=== PATIENT | male | born 1970 | race Hispanic/Latino ===

== ENCOUNTER 2017-11-04 22:37 | Emergency (ER) | payer OTHER ==
--- NOTE | 2017-11-05 00:01 | ER ---
Nurse's Notes [facility] Name: Wilbert Collins Age: 47 yrs Sex: Male : 1970 Arrival Date: 11/04/2017 Time: 22:42 Bed Waiting Private MD: Diagnosis: Presentation: 11/04 22:56 Presenting complaint: Patient states: Toothache x1 week worse today; States pain to lp1 left top of mouth; taking OTC Anbesol topical get with no relief. Transition of care: patient was not received from another setting of care. Onset of symptoms was November 04, 2017. Risk Assessment: Do you want to hurt yourself or someone else? Patient reports no desire to harm self or others. Initial Sepsis Screen: Does the patient meet any 2 criteria? No. Patient's initial sepsis screen is negative. Does the patient have a suspected source of infection? No. Patient's initial sepsis screen is negative. Care prior to arrival: None. 22:56 Method Of Arrival: Ambulatory lp1 22:56 Acuity: CECILIA 5 lp1 Triage Assessment: 23:00 General: Appears in no apparent distress. Behavior is calm, cooperative, appropriate lp1 for age. Pain: Complains of pain in left buccal mucosa Pain currently is 8 out of 10 on a pain scale. 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 - Social history:: Smoking status: Patient/guardian denies using tobacco. - Ebola Screening: : No symptoms or risks identified at this time. Screenin:58 Abuse screen: Denies threats or abuse. Denies injuries from another. Nutritional lp1 screening: No deficits noted. Tuberculosis screening: No symptoms or risk factors identified. Fall Risk None identified. Assessment: 23:19 General: Appears uncomfortable, Behavior is appropriate for age. Pain: Complains of lp1 pain in left buccal mucosa Pain currently is 8 out of 10 on a pain scale. Quality of pain is described as aching. Neuro: Level of Consciousness is awake, alert, obeys commands. Cardiovascular: Patient's skin is warm and dry. Respiratory: Respiratory effort is even, unlabored. GI: No signs and/or symptoms were reported involving the gastrointestinal system. : No signs and/or symptoms were reported regarding the genitourinary system. EENT: Reports pain in left buccal mucosa. Derm: Skin is pink, warm \T\ dry. Musculoskeletal: Circulation, motion, and sensation intact. Vital Signs: 22:58 BP 141 / 108; Pulse 61; Resp 16; Temp 98.3(O); Pulse Ox 98% on R/A; Weight 81.65 kg; lp1 Height 5 ft. 4 in. (162.56 cm); Pain 8/10; 22:58 Body Mass Index 30.90 (81.65 kg, 162.56 cm) lp1 ED Course: 22:42 Patient arrived in ED. es 22:57 Triage completed. lp1 22:58 Arm band placed on left wrist. lp1 23:19 Patient has correct armband on for positive identification. lp1 23:52 Charanjit Borjas NP is PHCP. pm1 23:52 Johnny Kaiser MD is Attending Physician. pm1 23:59 Patient's name was called from ER Graspr. No response. lp1 Administered Medications: No medications were administered Outcome: 11/05 00:00 Eloped from waiting room, before seeing physician Time discovered patient gone: October lp1 2017 at 00:00 00:00 Patient left the ED. lp1 Signatures: Racquel Robison Laura RN RN lp1 Charanjit Borjas NP COMPUTER SYSTEMS ENGINEER pm1 Corrections: (The following items were deleted from the chart) 00:00 11/04 23:59 Patient's name was called from ER Graspr. No response. lp1 lp1
--- NOTE | 2017-11-06 00:01 | EDPHYS ---
Physician Documentation [facility] Name: Wilbert Collins Age: 47 yrs Sex: Male : 1970 Arrival Date: 11/04/2017 Time: 22:42 Bed Waiting Private MD: ED Physician Johnny Kaiser Historical: - Allergies: 11/04 22:58 No Known Allergies; lp1 - Home Meds: 22:58 None [Active]; lp1 - PMHx: 22:58 None; lp1 - PSHx: 22:58 L great toe amputation; lp1 - Immunization history:: Adult Immunizations up to date. - Social history:: Smoking status: Patient/guardian denies using tobacco. - Ebola Screening: : No symptoms or risks identified at this time. Vital Signs: 22:58 BP 141 / 108; Pulse 61; Resp 16; Temp 98.3(O); Pulse Ox 98% on R/A; Weight 81.65 kg; lp1 Height 5 ft. 4 in. (162.56 cm); Pain 8/10; 22:58 Body Mass Index 30.90 (81.65 kg, 162.56 cm) lp1 MDM: 23:57 Patient medically screened. pm1 11/05 00:00 ED course: Patient left the ER prior to being evaluated by me. pm1 00:00 ED course: Impression: Dental pain. pm1 Administered Medications: No medications were administered Disposition: 11/05/17 00:00 Patient left the facility before being seen by provider. - Patient left due to unknown. Signatures: Paris Arteaga RN RN lp1 Charanjit Borjas NP SOLAR SALES ESTIMATOR pm1
== END 2017-11-05 | disposition left against medical advice (07) ==
LOC: ER 22:37
DX: Z53.21 Procedure and treatment not carried out due to patient leaving prior to being seen by health care provider (principal)
CPT/HCPCS: 99281

== ENCOUNTER 2017-11-12 18:56 | Emergency (ER) | payer OTHER ==
--- NOTE | 2017-11-12 19:09 | EDPHYS ---
Physician Documentation [facility] Name: Wilbert Collins Age: 47 yrs Sex: Male : 1970 Arrival Date: 11/12/2017 Time: 18:56 Bed 12 Private MD: ED Physician Saulo Bush HPI: 11/12 19:12 This 47 yrs old Male presents to ER via Ambulatory with complaints of snw Toothache. 19:12 The patient presents with pain. The problem is located in the upper left second molar snw (#15). Onset: The symptoms/episode began/occurred gradually. Duration: The symptoms are continuous. Associated signs and symptoms: The patient has no apparent associated signs or symptoms. Severity of symptoms: At their worst the symptoms were severe. It is unknown whether or not the patient has had similar symptoms in the past. had dental work, appt for root canal but unable to stand the pain. Historical: - Allergies: 19:01 No Known Allergies; la1 - PMHx: 19:01 Hypertension; la1 - Immunization history:: Adult Immunizations up to date. - Social history:: Smoking status: Patient/guardian denies using tobacco. - Ebola Screening: : No symptoms or risks identified at this time. ROS: 19:11 Constitutional: Negative for fever, chills, and weight loss, Eyes: Negative for injury, snw pain, redness, and discharge, Neck: Negative for injury, pain, and swelling, Cardiovascular: Negative for chest pain, palpitations, and edema, Respiratory: Negative for shortness of breath, cough, wheezing, and pleuritic chest pain, Abdomen/GI: Negative for abdominal pain, nausea, vomiting, diarrhea, and constipation, Back: Negative for injury and pain, : Negative for injury, bleeding, discharge, and swelling, MS/Extremity: Negative for injury and deformity, Skin: Negative for injury, rash, and discoloration, Neuro: Negative for headache, weakness, numbness, tingling, and seizure. 19:11 ENT: Positive for dental pain. Exam: 19:11 Constitutional: This is a well developed, well nourished patient who is awake, alert, snw and in no acute distress. Head/Face: Normocephalic, atraumatic. Eyes: Pupils equal round and reactive to light, extra-ocular motions intact. Lids and lashes normal. Conjunctiva and sclera are non-icteric and not injected. Cornea within normal limits. Periorbital areas with no swelling, redness, or edema. ENT: Nares patent. No nasal discharge, no septal abnormalities noted. Tympanic membranes are normal and external auditory canals are clear. Oropharynx with no redness, swelling, or masses, exudates, or evidence of obstruction, uvula midline. Mucous membranes moist. Neck: Trachea midline, no thyromegaly or masses palpated, and no cervical lymphadenopathy. Supple, full range of motion without nuchal rigidity, or vertebral point tenderness. No Meningismus. Chest/axilla: Normal chest wall appearance and motion. Nontender with no deformity. No lesions are appreciated. Cardiovascular: Regular rate and rhythm with a normal S1 and S2. No gallops, murmurs, or rubs. Normal PMI, no JVD. No pulse deficits. Respiratory: Lungs have equal breath sounds bilaterally, clear to auscultation and percussion. No rales, rhonchi or wheezes noted. No increased work of breathing, no retractions or nasal flaring. Abdomen/GI: Soft, non-tender, with normal bowel sounds. No distension or tympany. No guarding or rebound. No evidence of tenderness throughout. Back: No spinal tenderness. No costovertebral tenderness. Full range of motion. Skin: Warm, dry with normal turgor. Normal color with no rashes, no lesions, and no evidence of cellulitis. MS/ Extremity: Pulses equal, no cyanosis. Neurovascular intact. Full, normal range of motion. Neuro: Awake and alert, GCS 15, oriented to person, place, time, and situation. Cranial nerves II-XII grossly intact. Motor strength 5/5 in all extremities. Sensory grossly intact. Cerebellar exam normal. Normal gait. Psych: Awake, alert, with orientation to person, place and time. Behavior, mood, and affect are within normal limits. 19:11 ENT: Dental exam: missing teeth, specifically the upper left first molar (#14), pain, that is severe, specifically in the upper left second molar (#15). Vital Signs: 19:01 BP 175 / 110; Pulse 90; Resp 19; Temp 99.1; Pulse Ox 100% on R/A; Weight 81.65 kg; la1 19:36 BP 160 / 105; Pulse 88; Resp 18; Pulse Ox 99% on R/A; lp1 MDM: 19:07 Patient medically screened. snw 19:12 Data reviewed: vital signs, nurses notes. Data interpreted: Pulse oximetry: on room air snw is 100 %. Interpretation: normal. Counseling: I had a detailed discussion with the patient and/or guardian regarding: the historical points, exam findings, and any diagnostic results supporting the discharge/admit diagnosis, the presence of at least one elevated blood pressure reading (>120/80) during this emergency department visit, the need for outpatient follow up, to return to the emergency department if symptoms worsen or persist or if there are any questions or concerns that arise at home. Special discussion: I have referred the patient to see his PCP for further evaluation of high blood pressure. I discussed in detail with the patient the higher chance of wound infection based on his presenting history. Based on the history and exam findings, there is no indication for further emergent testing or inpatient evaluation. I discussed with the patient/guardian the need to see a dentist for further evaluation of the symptoms. I discussed with the patient/guardian the need to see the primary care provider for further evaluation of the symptoms. Administered Medications: 19:17 Drug: fentaNYL (PF) 75 mcg Route: IM; Site: right gluteus; lp1 19:36 Follow up: Response: Pain is decreased lp1 19:17 Drug: TORadol 60 mg Route: IM; Site: right gluteus; lp1 19:36 Follow up: Response: Pain is decreased lp1 19:17 Drug: Augmentin 875 mg Route: PO; lp1 19:36 Follow up: Response: No adverse reaction lp1 Disposition: 11/12/17 19:08 Discharged to Home. Impression: Dental caries, Dental root caries. - Condition is Stable. - Discharge Instructions: Dental Abscess, Dental Caries, Adult, Dental Pain, Root Canal, Diet and Dental Disease. - Prescriptions for penicillin V potassium 500 mg Oral tablet - take 1 tablet by ORAL route every 8 hours; 30 tablet. Diclofenac Sodium 75 mg Oral Tablet Sustained Release - take 1 tablet by ORAL route 2 times per day; 30 tablet. - Medication Reconciliation Form, Thank You Letter, Antibiotic Education, Prescription Opioid Use form. - Follow up: Emergency Department; When: As needed; Reason: Worsening of condition. Follow up: Private Physician; When: 1 - 2 days; Reason: Recheck today's complaints, Continuance of care, Re-evaluation by your physician. Addendum: 11/15/2017 07:27 Co-signature as Attending Physician, Saulo Bush MD I agree with the assessment and k dr plan of care. Signatures: Saulo Bush MD MD [facility] Yuko Chavez, HOG RINGER-C HOG RINGER-Csnw Paris Arteaga, RN RN lp1 Yahir Russell RN RN la1 Corrections: (The following items were deleted from the chart) 11/12 19:37 19:08 11/12/2017 19:08 Discharged to Home. Impression: Dental caries; Dental root lp1 caries. Condition is Stable. Forms are Medication Reconciliation Form, Thank You Letter, Antibiotic Education, Prescription Opioid Use. Follow up: Emergency Department; When: As needed; Reason: Worsening of condition. Follow up: Private Physician; When: 1 - 2 days; Reason: Recheck today's complaints, Continuance of care, Re-evaluation by your physician. snw
--- NOTE | 2017-11-12 19:09 | ER ---
Nurse's Notes [facility] Name: Wilbert Collins Age: 47 yrs Sex: Male : 1970 Arrival Date: 11/12/2017 Time: 18:56 Bed 12 Private MD: Diagnosis: Dental caries;Dental root caries Presentation: 11/12 19:00 Presenting complaint: Patient states: I have an appointment for a root canal in 2 weeks la1 because they had to take care of my cavities first but they did not give me anything for the pain and it is very bad. Transition of care: patient was not received from another setting of care. Onset of symptoms was November 12, 2017. Risk Assessment: Do you want to hurt yourself or someone else? Patient reports no desire to harm self or others. Initial Sepsis Screen: Does the patient meet any 2 criteria? No. Patient's initial sepsis screen is negative. Does the patient have a suspected source of infection? No. Patient's initial sepsis screen is negative. Care prior to arrival: None. 19:00 Method Of Arrival: Ambulatory la1 19:00 Acuity: CECILIA 4 la1 Historical: - Allergies: 19:01 No Known Allergies; la1 - PMHx: 19:01 Hypertension; la1 - Immunization history:: Adult Immunizations up to date. - Social history:: Smoking status: Patient/guardian denies using tobacco. - Ebola Screening: : No symptoms or risks identified at this time. Screenin:19 Abuse screen: Denies threats or abuse. Denies injuries from another. Nutritional lp1 screening: No deficits noted. Tuberculosis screening: No symptoms or risk factors identified. Fall Risk None identified. Assessment: 19:17 General: Appears uncomfortable, Behavior is appropriate for age. Pain: Complains of lp1 pain in left buccal mucosa Pain currently is 8 out of 10 on a pain scale. Quality of pain is described as aching, sharp. Neuro: Level of Consciousness is awake, alert, obeys commands. Cardiovascular: Patient's skin is warm and dry. Respiratory: Respiratory effort is even, unlabored. GI: No signs and/or symptoms were reported involving the gastrointestinal system. : No signs and/or symptoms were reported regarding the genitourinary system. EENT: Oral mucosa is moist. Reports pain in left jaw. Derm: Skin is pink, warm \T\ dry. Musculoskeletal: Circulation, motion, and sensation intact. 19:36 Reassessment: Patient states symptoms have improved. lp1 Vital Signs: 19:01 BP 175 / 110; Pulse 90; Resp 19; Temp 99.1; Pulse Ox 100% on R/A; Weight 81.65 kg; la1 19:36 BP 160 / 105; Pulse 88; Resp 18; Pulse Ox 99% on R/A; lp1 ED Course: 18:56 Patient arrived in ED. es 19:01 Triage completed. la1 19:02 Paris Arteaga, RN is Primary Nurse. lp1 19:02 Arm band placed on right wrist. la1 19:03 Yuko Chavez FNP-C [facility]. snw 19:03 Saulo Bush MD is Attending Physician. snw 19:19 No provider procedures requiring assistance completed. Patient did not have IV access lp1 during this emergency room visit. 19:20 Patient has correct armband on for positive identification. lp1 Administered Medications: 19:17 Drug: fentaNYL (PF) 75 mcg Route: IM; Site: right gluteus; lp1 19:36 Follow up: Response: Pain is decreased lp1 19:17 Drug: TORadol 60 mg Route: IM; Site: right gluteus; lp1 19:36 Follow up: Response: Pain is decreased lp1 19:17 Drug: Augmentin 875 mg Route: PO; lp1 19:36 Follow up: Response: No adverse reaction lp1 Outcome: 19:08 Discharge ordered by MD. snw 19:35 Discharged to home ambulatory, with significant other. lp1 19:35 Condition: good 19:35 Discharge instructions given to patient, significant other, Instructed on discharge instructions, follow up and referral plans. medication usage, Demonstrated understanding of instructions, follow-up care, medications, Prescriptions given X 2. 19:37 Patient left the ED. lp1 Signatures: Yuko Chavez FNP-C COMPOUNDER-Csnw Racquel Robison Laura, RN RN lp1 Yahir Russell RN RN la1
[2017-11-12] MEDS ORDERED: FENTANYL CITR 100 MCG/2 ML ONE (19:13)
[2017-11-12] MEDS ORDERED: KETOROLAC 30 MG/ML INJ ONE (19:13)
[2017-11-12] MEDS ORDERED: AMOX/K CLAV 875 MG TAB ONE (19:13)
== END 2017-11-12 19:37 | disposition home or self-care (01) ==
LOC: ER 18:56
DX: K02.7 Dental root caries (principal); I10 Essential (primary) hypertension
CPT/HCPCS: 96372; 99283; J3010